=== PATIENT | male | born 1950 | race Caucasian/White ===

== ENCOUNTER → 2023-09-26 08:16 | Outpatient (REF) | payer MEDICARE, OTHER, SELFPAY | LOC: DHCBC MAIN 08:16 | PROVIDERS: ATTENDING PHYSICIAN Internal Medicine; FAMILY PHYSICIAN Physician Assistant | DX: I48.0 Paroxysmal atrial fibrillation (principal); I25.10 Atherosclerotic heart disease of native coronary artery without angina pectoris | CPT/HCPCS: 93306 ==

== ENCOUNTER 2023-11-04 01:55 | Emergency (ER) | payer MEDICARE, OTHER, SELFPAY ==
[2023-11-04] VITALS (9 sets, daily range): BP systolic 135–190; BP diastolic 68–92; PULSE 54–58; BMI 26.1
[2023-11-04 02:15] LABS: % Basophils 0.5 % (0-2); % Eosinophils 6.2 % (0-6); % Immature Granulocytes 0.3 % (0-0.5); Absolute Eosinophils 0.5 10^3/uL (0-0.7); Absolute Lymphocytes 3.2 10^3/uL (1.2-3.4); Absolute Monocytes 0.9 10^3/uL (0.1-0.6); Absolute Neutrophils 3.1 10^3/uL (1.4-6.5); Hemoglobin 15.6 g/dL (13.0-18.0); Mean Corp Hgb Conc. 35.5 g/dL (33.0-37.0); Mean Corpuscular Hgb 32.2 pg (27.0-31.0); Mean Corpuscular Volume 90.9 fL (80.0-94.0); Mean Platelet Volume 11.6 fL (7.4-10.4); Nucleated Red Blood Cells % 0 % (-); Platelet Count 197 10^3/uL (130-400); Red Blood Cell Count 4.84 10^6/uL (4.70-6.10); Red Cell Dist. Width 12.7 % (11.5-14.5); White Blood Cell Count 7.7 10^3/uL (4.8-10.8)
[2023-11-04 02:28] LABS: ALT (SGPT) 19 U/L (0-50); AST (SGOT) 49 U/L (17-59); Albumin 4.4 g/dl (3.5-5.0); Alkaline Phosphatase 92 U/L (38-126); Blood Urea Nitrogen 18 mg/dl (9-20); Calcium 9.2 mg/dl (8.4-10.2); Carbon Dioxide 28 mmol/L (22-30); Chloride 105 mmol/L (98-107); Glucose 101 mg/dl (70-99); Potassium 3.9 mmol/L (3.5-5.1); Sodium 139 mmol/L (135-145); Total Bilirubin 0.5 mg/dl (0.2-1.3); Total Protein 7.5 g/dl (6.3-8.2); eGFR > 60.00
--- NOTE | 2023-11-04 06:00 | EDRN ---
Dr. Salomon in speaking with patient about results and plan
--- NOTE | 2023-11-04 06:25 | ED.GENMED ---
History of Present Illness
General
Chief Complaint: Dizziness
Source: patient
Exam Limitations: none
Time Seen by Provider: 11/04/23 03:26
Nursing documentation reviewed up to this point in time: agreed with
Travel History
Have you had any contact with someone who has COVID-19?: No
Do you have any symptoms of coronavirus? Fever > 100 degrees, chills, cough, shortness of breath, sore throat, loss of taste or smell, muscle aches, or headache?: No
History of Present Illness
History of Present Illness:
Pt presents to ED secondary to sudden onset of dizziness when he woke up this morning, while walking to the bathroom. Patient describes extreme room spinning sensation. Denies blurred vision. Denies headache. Denies vomiting. Denies loss of
sensation or weakness. Denies difficulty with speech. Denies difficulty with ambulation. Denies previous history of similar symptoms. Denies recent illness. Denies recent change in medications or diet. Patient's medical history is significant
for paroxysmal atrial fibrillation, for which he is taking sotalol. Patient had taken Eliquis and Xarelto in the past, but was discontinued secondary to side effects. Patient is currently not taking any blood thinning medications.
Past History
Past History
ED Past Medical History: Arrthythmia (Paroxysmal atrial fibrillation), CAD, GERD, HTN and Other (Paroxysmal A-Fib)
ED Past Surgical History: Cardiac (Cardiac catheterization 2007 revealing an occluded right coronary artery and mild disease elsewhere. Nuclear stress test 2014, unremarkable.) and Other (Rectal fistula)
Social History
Tobacco: Former smoker
Alcohol: Occasional
Drug: None
Personal:
Living: with family
Employment: Retired ([employer])
Family History
Family History: Other (Grandmother w/ diabetes, grandfather and father with AL.)
Review of Systems
Review of Systems
Allergies reviewed?: Yes
All Other Systems: ROS reviewed and negative except as documented in HPI and ROS
Constitutional: Reports no symptoms
EENT: Reports no symptoms
Respiratory: Reports no symptoms
Cardiac: Reports no symptoms
ABD/GI: Reports no symptoms
: Reports no symptoms
Musculoskeletal: Reports no symptoms
Skin: Reports no symptoms
Neurological: Reports dizzy
Phy Exam
Physical Exam
Physical Exam:
Physical Exam
General: no apparent distress, not acutely ill. afebrile
Head: nc/at. eomi. no nystagmus.
Neck: supple. no meningeal signs.
Heart: s1/s2 regular rate and rhythm, no murmur. equal radial pulses.
Lungs: no acute respiratory distress. clear bilaterally
Abdomen: normal bowel sounds. not tender.
Neuro: alert and oriented. no focal neurological deficits. normal gait. normal speech.
Skin: no rash
Psychiatric: well kept. interactive and cooperative
Extremities: no edema. no calf tenderness.
Course
Orders/Labs/Results
Orders:
Orders
11/04/23 01:59
Electrocardiogram (*1) Urgent
Reason for Study: Vertigo / Dizzy
EKG- Treatment ONCE
11/04/23 02:08
CMP [Comprehensive Metabolic Panel] Urgent
Complete Blood Count/With Diff Urgent
11/04/23 05:24
CT Head W/o Iv Contrast Urgent
Comment:
Reason For Exam: dizziness
Orthostatic VS- Treatment ONCE
11/04/23 05:49
Troponin I Urgent
11/04/23 05:56
CT Head & Neck Angio W/wo IV Urgent
Comment:
Reason For Exam: dizziness w hx a.fib
11/04/23 05:57
NEUROLOGY CONSULT Urgent
Consulting Provider: Farhat Vergara
Was physician already notified: Yes
Reason for consult: dizziness
11/04/23 06:29
MR Brain Without Contrast Urgent
Comment:
Reason For Exam: dizziness
Recent pill cam endoscopy?: No
11/04/23 09:36
Orthostatic Vital Signs As Directed
Orthostatic VS Frequency: Now
Comment: lying flat x 3 mins then check, seated 3 minutes check, stand 3 mins check
Abnormal Lab Results
11/04/23
02:08
MCH 32.2 H pg
(27.0-31.0)
MPV 11.6 H fL
(7.4-10.4)
Absolute Monos (auto) 0.9 H 10^3/uL
(0.1-0.6)
Neutrophils % 40.0 L %
(42.2-75.2)
Monocytes % 11.0 H %
(1.7-9.3)
Eosinophils % 6.2 H %
(0-6)
Creatinine 0.6 L mg/dL
(0.7-1.3)
Glucose 101 H mg/dl
(70-99)
11/04/23 02:08
11/04/23 02:08
Vital Signs
Initial and Last Documented VS:
Initial Vital Signs
Temp Pulse Resp BP Pulse Ox
98.2 F 60 20 190/92 100
11/04/23 01:57 11/04/23 01:57 11/04/23 01:57 11/04/23 01:57 11/04/23 01:57
Last Documented Vital Signs
Temp Pulse Resp BP Pulse Ox
97.6 F 55 16 150/72 98
11/04/23 07:36 11/04/23 10:05 11/04/23 07:36 11/04/23 10:05 11/04/23 10:05
MDM/Problems Addressed
MDM/Problems Addressed:
Patient with spontaneous resolution of symptoms during observation ED.
CT head: No acute findings.
Discussed with Dr. Vergara, neurology. Recommends following: CT angiogram head and neck, along with MRI brain without contrast. Clinical concern for potential cerebellar involvement. Will come and see patient in ED.
*Critical Care Note
Total Time (30-74mins, 75-104mins- exclusive of procedures): Not Applicable
ED Attending Note
-
Portions of this chart may have been created with voice recognition software.� Occasional wrong word or��sound alike� substitutions may have occurred due to the inherent limitations of voice recognition software.
Discharge Plan
Departure
Patient Disposition: Home (Routine Discharge)
Date of Disposition: 11/04/23
Time of Disposition: 10:08
Patient with high blood pressure during this ER visit?: Yes
Condition: Good
Discharge Problem:
Dizziness
Instructions: Dizziness, BLOOD PRESSURE
Prescriptions:
No Action
atorvastatin [Lipitor] 40 MG tablet
40 mg PO QPM
Xarelto 20 MG tablet
20 mg PO QPM Qty: 30 3RF
lisinopril 2.5 MG tablet
2.5 mg PO DAILY
nitroglycerin 0.4 MG tablet, sublingual
0.4 mg sublingual [id number] PRN (Reason: SAAVEDRA or CP) Qty: 25 3RF
sotalol 80 MG tablet
60 mg PO BID Qty: 60 1RF
cyanocobalamin (vitamin B-12) 1,000 MCG tablet extended release
1,000 mcg PO .THREE TIMES WEEKLY
vitamin E (dl, acetate) 1,000 UNIT capsule
1,000 unit PO DAILY
Referrals:
Milton Betancourt MD [Family Provider] - Call in 1-3 days for appt
Interventions
Interventions:
*Risk Screen - Suicide Last Done: 11/04/23 01:57
*General Assessment Last Done: 11/04/23 03:54
*Neglect/Abuse Screening Last Done: 11/04/23 01:57
ED- Fall Risk Assessment Last Done: 11/04/23 07:33
*ED COVID-19 Vaccine History Last Done: 11/04/23 03:54
*Nursing Disposition Last Done: 11/04/23 10:25
ED- Neurological Assessment Last Done: 11/04/23 07:33
ED- Cardiac Assessment Last Done: 11/04/23 07:33
ED Swallowing Screen Last Done: 11/04/23 07:33
Discharge Date and Time
Discharge Date/Time: 11/04/23 10:25
[2023-11-04 06:28] LABS: Troponin I < 0.012 ng/ml
--- NOTE | 2023-11-04 09:36 | CON.NEURO4 ---
Addendum entered and electronically signed by Farhat Vergara MD 11/04/23 12:40:
Studies reviewed.
I have personally examined the patient. I reviewed and agree with the COAGULATING OPERATOR's Note.
My addenda:
Awake, alert, interactive. No acute distress.
Speech intact.
Follows 2-step requests w/o difficulty. No tremor.
Extra-ocular movements grossly intact.
Facial movements full and symmetric. Hearing intact to normal conversational volume.
Normal UE movements bilaterally.
Neck: full ROM.
Chest: no dyspnea
Heart: no JVD
Ext: (-) Clubbing, (-) Cyanosis, (-) Edema
IMPRESSIONS/RECOMMENDATIONS:
Abrupt onset of vertigo without evidence of peripheral etiology by hints testing
MRI brain was unremarkable. 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
Supportive care
Perform new CT angiogram head and neck October 2024 for comparison
Check orthostatic blood pressures with 3-minute intervals between each body position change
D/W patient / family
All questions answered.
Will continue to follow as needed. Patient may have upcoming knee replacement as scheduled from neurological position.
Original Note:
Consultation - Neurology 4
-
CONSULTING PHYSICIAN: Farhat Vergara MD
REFERRING PHYSICIAN: ER/Dr. Salomon
DICTATED BY: RANDEE Joel
DATE/TIME OF REQUEST: 11/04/23
DATE/TIME OF CONSULTATION: 11/04/23
Reason for Consultation: Dizziness
History of Present Illness:
This is a 73-year-old right-handed male who has presented to the hospital with report of dizziness. Patient reports that he woke up at 0130 to use the bathroom, and upon standing, he developed a sudden onset spinning sensation. He was able to
ambulate to the bathroom but reports he was unsteady and furniture reaching. He reports some nausea but denies vomiting. The spinning sensation resolved quickly in 1-2 minutes, but he did not feel quite back to himself until he was in the ER about
an hour later. He denies any headache, vision changes, speech/swallow difficulty, numbness, weakness, chest pain, palpitations, and shortness of breath. He reports a history of bilateral tinnitus for several years and mild hearing loss. He also
reports a mild stiff neck which he attributes to his pillow. He has paroxysmal Afib that is managed with rate control medications only. He was on Xarelto and Elquis in the past and reports they both made him feel 'lousy' so he refuses
anticoagulation. He denies any history of TIA, stroke, or vertigo in the past. He is scheduled for a knee surgery next week and reports significant anxiety about this that has been causing him some GI symptoms over the past couple of weeks.
Past Medical History: Paroxysmal Afib (not on OAC), CAD, HTN, HLD, MALORIE (cpap), GERD, tinnitus, colon polyps, osteoarthritis
Surgical History: Cardiac cath, left knee arthroscopy, right shoulder repair
Family History: Reviewed and noncontributory.
Social History: Former smoker. Occasional alcohol. Denies illicit drug use.
Allergies: No known allergies.
Home Medications: See below.
Review of Symptoms:
Patient denies any fever, headache, chest pain, shortness of breath, GI or symptoms.
�Per the HPI.�All systems are reviewed negative except above.
Physical Exam:
The patient is afebrile, abdomen is nondistended, breathing is unlabored, skin is warm and dry, no edema.
NIH Stroke Scale:
I performed the NIH stroke scale on the patient on 11/04/23 at 0945. The patient scored 0 points on the NIH stroke scale assessment, which were assigned as follows: See below.
Neurologic Examination:
The patient is awake, alert and oriented x 3. He is able to follow commands and answer questions appropriately. There is no aphasia or dysarthria. On cranial nerve assessment, pupils are 3 mm bilateral, round and reactive to light and
accommodation. Visual fuller are full. Extraocular movements are intact. Facial sensations are intact and bilaterally symmetrical, there is no facial asymmetry. Hearing is diminished bilaterally to normal conversation volume but intact to bilateral
finger rub. Tongue palate and uvula are midline. Sternocleidomastoid strengths are full bilaterally. Motor strengths are 5/5 bilateral upper and lower extremities on medical research [place] scale. There is no drift or involuntary movement noted.
Deep tendon reflexes are 1+ bilateral upper and lower extremities and Babinski is absent bilaterally. Sensations of touch, temperature and vibration are intact and bilaterally symmetrical. There was no extinction noted on double simultaneous
stimulation. Coordination is intact by finger to nose bilaterally. HINTS exam is negative.
Lab Results: See below.
Neuro Imaging:
1. CT Head 11/04/23: There are no focal or acute intracranial abnormalities. There is mild-moderate diffuse cortical and cerebellar atrophy.
2. CTA head/neck 11/04/23: No CTA evidence for internal carotid artery stenosis, occlusion, or dissection. No CTA evidence for vertebral artery stenosis, occlusion, or dissection. 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 Severe
asymmetric atrophy of the right submandibular gland. Moderate to severe discogenic degenerative disease in the cervical spine with multilevel disc-osteophyte complexes causing mild spinal cord compression and central canal stenosis. 3.5 mm saccular
aneurysm arising from the lateral wall of the cavernous segment of the left internal carotid artery. 2 mm saccular aneurysm arising from the tip of the basilar artery. Mild diffuse cerebral and cerebellar volume loss.
3. MRI Brain 11/04/23: On thin section imaging, normal appearance of the IACs. No evidence for cerebellopontine angle mass. No evidence of acute intracranial abnormality.
Differentials for the patient's presentation include:
1. Orthostatic hypotension likely producing transient dizziness.
2. Vertigo syndrome including BPPV possible.
3. MRI brain negative for stroke, low concern for TIA.
4. Incidental findings on CTA imaging of a 3.5mm saccular aneurysm arising from the cavernous segment of the left ICA and a 2mm saccular aneurysm arising from the tip of the basilar artery, unrelated to current symptoms.
Patient has the following risk factors for their symptoms: hearing los, Afib (not on OAC), HTN, HLD
Recommendations:
-Check orthostatic vital signs.
-Physical therapy evaluation.
-Needs aneurysm follow-up with repeat CTA head/neck imaging in about 1 year. May follow-up with neurosurgery as an outpatient for aneurysm surveillance.
Discussed patient care with: Dr. Vergara, the patient, patient's spouse
--- NOTE | 2023-11-04 09:48 | EDRN ---
neurologist currently at the pts bedside speaking to the pt and the pts
== END 2023-11-04 10:25 | disposition home or self-care (01) ==
LOC: EMR 01:55
PROVIDERS: CONSULT PHYSICIAN Psychiatry & Neurology Neurology; EMERGENCY PHYSICIAN Emergency Medicine; FAMILY PHYSICIAN Internal Medicine Geriatric Medicine
DX: R42 Dizziness and giddiness (principal); I48.0 Paroxysmal atrial fibrillation; I25.10 Atherosclerotic heart disease of native coronary artery without angina pectoris; K21.9 Gastro-esophageal reflux disease without esophagitis; I10 Essential (primary) hypertension; E78.5 Hyperlipidemia, unspecified; Z79.01 Long term (current) use of anticoagulants; Z82.49 Family history of ischemic heart disease and other diseases of the circulatory system; Z83.3 Family history of diabetes mellitus; Z87.19 Personal history of other diseases of the digestive system; Z87.891 Personal history of nicotine dependence
CPT/HCPCS: 99284; 70450; 70496; 70498; 70551; 80053; 84484; 85025; 93005; Q9967

== ENCOUNTER 2023-11-20 09:53 | Outpatient (RCR) | payer MEDICARE, OTHER, SELFPAY | END 2023-11-20 23:59 | disposition home or self-care (01) | LOC: RPT 09:53 | PROVIDERS: ATTENDING PHYSICIAN Orthopaedic Surgery; PRIMARYCARE PHYSICIAN Internal Medicine | DX: Z47.1 Aftercare following joint replacement surgery (principal); Z96.651 Presence of right artificial knee joint; Z73.6 Limitation of activities due to disability | CPT/HCPCS: 97010; 97110; 97116; 97162 ==

== ENCOUNTER 2023-12-22 10:00 | Outpatient (RCR) | payer MEDICARE, OTHER, SELFPAY | END 2023-12-22 23:59 | disposition home or self-care (01) | LOC: RPT 10:00 | PROVIDERS: ATTENDING PHYSICIAN Orthopaedic Surgery; PRIMARYCARE PHYSICIAN Internal Medicine | DX: Z47.1 Aftercare following joint replacement surgery (principal); Z96.651 Presence of right artificial knee joint; Z73.6 Limitation of activities due to disability | CPT/HCPCS: 97110; 97112; 97530 ==

== ENCOUNTER 2024-01-14 09:59 | Outpatient (RCR) | payer MEDICARE, OTHER, SELFPAY | END 2024-01-20 08:23 | disposition home or self-care (01) | LOC: RPT 09:59 | PROVIDERS: ATTENDING PHYSICIAN Orthopaedic Surgery; PRIMARYCARE PHYSICIAN Internal Medicine | DX: Z47.1 Aftercare following joint replacement surgery (principal); Z96.651 Presence of right artificial knee joint; Z73.6 Limitation of activities due to disability; R26.2 Difficulty in walking, not elsewhere classified; M25.561 Pain in right knee | CPT/HCPCS: 97110; 97112; 97530 ==

== ENCOUNTER 2024-10-18 06:17 | Day surgery (SDC) | payer MEDICARE, OTHER, SELFPAY | END 2024-10-18 13:18 | disposition home or self-care (01) | LOC: GI 06:17 | PROVIDERS: ATTENDING PHYSICIAN Internal Medicine Gastroenterology | DX: Z12.11 Encounter for screening for malignant neoplasm of colon (principal); D12.3 Benign neoplasm of transverse colon; K57.30 Diverticulosis of large intestine without perforation or abscess without bleeding; K64.8 Other hemorrhoids; Z86.0100 Personal history of colon polyps, unspecified | CPT/HCPCS: 45385; 88305 ==